=== PATIENT | male | born 1955 | race Caucasian/White ===

== ENCOUNTER 2020-09-18 09:46 | Outpatient (CLI) | payer OTHER, SELFPAY ==
[2020-09-18 10:15] VITALS: BMI 22.3
--- NOTE | 2020-09-18 10:16 | ECG_ITS ---
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 Interpretive Statements NAME OF STUDY: EXERCISE SESTAMIBI STRESS TEST INDICATION: Chest pain with abnormal EKG RESULTS TO [facility] PROCEDURE: The baseline electrocardiogram showed normal sinus rhythm with some nonspecific T wave changes.. At the baseline, the patient's blood pressure was 112/75 mm Hg with a heart rate of 76. The patient exercised for 6 minutes on a standard Darrick protocol. Patient attained a maximum heart rate of 135 beats per minute(86% of the maximum predicted heart rate) with a blood pressure at the peak exercise of 139/70 mm Hg. The EKG at the peak exercise revealed no significant changes. Patient did not have any chest pain or any significant arrhythmis with the exercise Sestamibi was injected 1 minute prior to the peak exercise During the recovery phase, there were no new changes. Blood pressure at the end of the recovery phase was 158/74 mm Hg with a heart rate of 96 per minute. CONCLUSION: 1. No significant EKG changes with the treadmill exercise 2. No exercise-induced chest pain or cardiac arrhythmia 3. Good impaired exercise tolerance, attained a maximum of METs 4. Sestamibi/Sestamibi perfusion results pending; see separate report. Electronically Signed On 09-28-2020 11:37:22 SCALE AND SKIP CAR OPERATOR by Julien Sterling M.D. [id number]
--- NOTE | 2020-09-18 10:17 | NMCV_ITS ---
NM lino perf SPECT r/s* [id number] Yoandy Marky Age: 65 Gender: M : 1955 Exam Date: 09/18/2020 11:10 Ordering Phys: Julien Sterling MD ([email or web address]) Technologist: PATRICK Jenkins Exam Location: [facility] Indications: SOB STRESS TEST Please see separate stress test report in Eph[facility]any for full findings IMAGE PROTOCOL Rest/Stress 1 Exercise Day Radiopharmaceutical Dose (mCi) Administration Site Administered by Rest: Tc-99m 10.5 IV PATRICK Jenkins Sestamimarina Stress:Tc-99m 32.4 IV PATRICK Jenkins Sestamimarina Rest: 18-Sep-2020 60 Discovery 630 Stress: 18-Sep-2020 30 Discovery 630 Radiopharmaceutical was injected at 85 % maximum heart rate. Images obtained in supine and prone position. SPECT RESULTS Technical Quality: Good Raw Data Analysis: Normal Image Corrections: No attenuation or motion correction applied Summed Stress Score: 3 Summed Rest Score: 8 Summed Difference Score: 0 PERFUSION FINDINGS Small to moderate area of severely decreases uptake in the basal mid and apical inferior, basal and mid inferoseptal, apical inferior and apical septal regions. No significant reversibility was noted in these regions. FUNCTIONAL RESULTS (calculated via Gated SPECT) Stress Image LV EF (%): 68 Stress EDV (mL):85 TID: 0.91 Stress ESV (mL):27 FUNCTIONAL FINDINGS: Segmental wall motion analysis revealed no gross wall motion normalities. IMPRESSIONS 1. Myocardial perfusion imaging revealing small to moderate area of persistent decreased tracer uptake in the inferior, inferoseptal and apical regions, suggestive of myocardial scarring versus attenuation artifacts 2. Normal LV ejection fraction of 68%. 3. LV wall motion analysis revealing no gross wall motion abnormalities. 4. Normal LV volume. No significant coronary ischemia, based on the above findings Dr Julien Sterling MD FACC (Electronically Signed) Final Date: 18 September 2020 17:48 S
--- NOTE | 2020-09-18 11:45 | SUR.PREOP ---
Patient reports no pain or discomfort prior to the start of the procedure.
[2020-09-18 12:04] VITALS: BP 158/64; PULSE 83
--- NOTE | 2020-09-18 13:30 | USCV_ITS ---
Marky Pitt Age: 65 Gender: M : 1955 Exam Date: 09/18/2020 10:32 Ordering Phys: Julien Sterling MD ([email or web address]) Technologist: Marcus Rico Exam Location: [facility] [place] Indication: CHEST PAIN PAIN BP: 143 / 75 HR: 62 Rhythm: Sinus Technical Quality: Good MEASUREMENTS (Male / Female) Normal Values 2D ECHO LV Diastolic Diameter PLAX 3.7 cm 4.2 - 5.9 / 3.9 - 5.3 cm LV Systolic Diameter PLAX 1.9 cm IVS Diastolic Thickness 1.8 cm 0.6 - 1.0 / 0.6 - 0.9 cm IVS Systolic Thickness 2.3 cm LVPW Diastolic Thickness 1.5 cm 0.6 - 1.0 / 0.6 - 0.9 cm LVPW Systolic Thickness 2.0 cm LVOT Diameter 2.0 cm LV Ejection Fraction 2D Teich 81.1 % LV Ejection Fraction MOD 2C 72.1 % LV Ejection Fraction 2C AL 71.5 % LA Diameter 3.2 cm LA Width 3.5 cm LA Height 3.4 cm RA Width 0.0 cm Aorta at Sinotubular Diameter 3.0 cm M-MODE LV Diastolic Diameter MM 2.9 cm 4.2 - 5.9 / 3.9 - 5.3 cm LV Systolic Diameter MM 3.1 cm LV Ejection Fraction MM Teich -12.9 % IVS Diastolic Thickness MM 1.4 cm 0.6 - 1.0 / 0.6 - 0.9 cm IVS Systolic Thickness MM 1.7 cm LVPW Diastolic Thickness MM 1.2 cm 0.6 - 1.0 / 0.6 - 0.9 cm LVPW Systolic Thickness MM 2.0 cm Aortic Annulus Diameter 3.8 cm LA Ao Ratio MM 0.9 MV E Point Septal Separation 0.7 cm DOPPLER AV Peak Velocity 122.0 cm/s LVOT Peak Velocity 116.0 cm/s AV Area Cont Eq vti 2.4 cm squared AV Area Cont Eq pk 3.1 cm squared MV Area PHT 3.1 cm squared Mitral E to A Ratio 1.1 MV E' Velocity 42.6 cm/s Mitral E to MV E' Ratio 8.8 Mitral E to LV E' Lateral Ratio 8.2 Mitral E to LV E' Septal Ratio 9.4 TR Peak Velocity 263.0 cm/s TR Peak Gradient 27.7 mmHg TV Peak E Velocity 64.0 cm/s PV Peak Velocity 64.0 cm/s RV Acceleration Time 0.1 s RV Ejection Time 0.3 s RV AcT/ET 0.5 FINDINGS Left Ventricle Normal left ventricular size and systolic function, EF 73 %. Mild left ventricular hypertrophy. No regional wall motion abnormalities. Right Ventricle The right ventricle is normal in size and function. Right Atrium The right atrium is normal in size. Left Atrium The left atrium is normal in size. Mitral Valve Thickened mitral valve. Echodensity in the anterior mitral leaflet, may suggest calcification.trace mitral valve regurgitation. Aortic Valve Thickened aortic valve. Tricuspid Valve No gross abnormalities noted. Trace tricuspid valve regurgitation. Pulmonic Valve No gross abnormalities noted Pericardium Normal pericardium without effusion. Aorta Normal ascending aorta dimension. CONCLUSIONS Normal left ventricular size and systolic function, EF 73 %. Mild left ventricular hypertrophy. No regional wall motion abnormalities. Thickened mitral valve. Echodensity in the anterior mitral leaflet, may suggest calcification.trace mitral valve regurgitation. Thickened aortic valve. Trace of tricuspid regurgitation There is no pericardial effusion. There are no intracardiac masses. No previous study is available for comparison. Dr Julein Sterling MD FACC (Electronically Signed) Final Date: 18 September 2020 20:51 S
== END 2020-09-18 09:47 | disposition home or self-care (01) ==
LOC: CDL 09:48
PROVIDERS: Visit Provider Internal Medicine Cardiovascular Disease
DX: R06.02 Shortness of breath (principal); R07.89 Other chest pain; I08.3 Combined rheumatic disorders of mitral, aortic and tricuspid valves
CPT/HCPCS: 78452; 93017; 93306; A9500

== ENCOUNTER 2020-12-03 11:59 | Emergency (ER) | payer OTHER, SELFPAY ==
[2020-12-03 12:16] VITALS: BP 150/84; PULSE 68; RESP 15; TEMP 36.3; O2SAT 99; BMI 22.7
--- NOTE | 2020-12-03 12:26 | ED_ITS ---
HPI - General Adult General: Chief complaint: General Medical Stated complaint: KAUFMAN, double vision, dizziness Time Seen by Provider: 12/03/20 12:24 History of Present Illness: HPI narrative: This patient is a 65-year-old male who presents to the emergency department complaint of 1 month worth of intermittent headache and intermittent blurry vision. Patient states that for the past month at times he will get a headache that involves his entire forehead area and it feels like pressure and then he will get blurred vision. When the headache goes away his vision gets better. Patient states happen again early this morning. Patient was sent to the emergency department by an urgent care facility. We will do medical evaluation treat as needed Location: head and eyes Radiation: non-radiation Severity: moderate Pain Consistency: intermittent Associated symptoms: Reports headache(s); Deny chest pain, dyspnea, nausea, rash, palpitations or vomiting Review of Systems General: Reports: 10 or more systems reviewed and unremarkable except in HPI and below Const: Denies: fever(s), chills, body aches or fatigue Eyes: Reports: change in vision; Denies: blurry vision ENMT: Denies: throat pain, hoarseness or mouth pain Card: Denies: chest pain, palpitations, irregular heart rhythm, edema, swelling of feet/ankles or lightheadedness Resp: Denies: dyspnea, productive cough, non-productive cough, wheezing or pain on inspiration GI: Denies: abdominal pain, nausea or vomiting : Denies: flank pain, dysuria, urinary frequency, urinary urgency or urinary hesitancy Musc: Denies: neck pain, back pain, extremity pain, extremity swelling, joint pain, joint swelling, joint redness, joint warmth or limited range of motion Skin/Breast: Denies: rash, pruritus, erythema or skin tenderness Neuro: Reports: headache(s); Denies: numbness in extremities or weakness in extremities Psych: Denies: anxiety or depression PFSH ED PFSH: Medical History Abnormal EKG Acute coronary syndrome Atypical chest pain Chest pain History of bilateral inguinal hernias History of COPD History of restless legs syndrome Hx of chronic gastritis Hx of hyperlipidemia Near syncope Sciatica Smoking addiction SOB (shortness of breath) Family History Father , [place] Hx of myocardial infarction Cancer leukemia Mother , [place] Hx of myocardial infarction Diabetes Brother CAD (coronary artery disease) AAA (abdominal aortic aneurysm) Diabetes Denies family history of Anesthesia complication Bleeding disorder Social History Smoking and tobacco status: current every day smoker cigarettes Packs smoked per day: 1 Alcohol intake: current Alcohol intake frequency: few times a week Alcohol type: beer Substance/Drug Use: former Date of last use: marijuana Household members: spouse Marital status: Current occupational status: employed History of recent travel: Yes Details: warehouse delivery driver Out of state: Yes Physical Exam Const: COMMON NORMALS: no acute distress, average body habitus, patient oriented x3, no limitations, healthy appearing, alert and well nourished HENMT: COMMON NORMALS: normocephalic, atraumatic, external ears normal, EAC's normal, TM's normal bilaterally, Normal external nose present and Normal nasal mucous membranes and turbinates present HEAD & SCALP: normocephalic and atraumatic NOSE: Normal external nose present and Normal nasal mucous membranes and turbinates present EXTERNAL EAR: Yes external ears normal EXTERNAL AUDITORY CANAL: EAC's normal TYMPANIC MEMBRANE: TM's normal bilaterally Neck/C-Spine: COMMON NORMALS: full ROM, no lymphadenopathy, supple, no meningeal signs, no JVD, Thyroid normal and No carotid bruits THYROID: Thyroid normal Chest: COMMONS NORMALS: normal inspection of the chest, normal palpation of entire chest wall, normal inspection of the breasts and normal palpation of the breasts Breast/axilla inspection: Yes normal inspection of the breasts BREAST/AXILLA PALPATION: Yes normal palpation of the breasts Resp: COMMON NORMALS: normal respiratory effort, No retractions, No use of accessory muscles, clear to auscultation bilaterally and percussion normal AUSCULTATION: clear to auscultation bilaterally PERCUSSION: percussion normal Cardio: COMMON NORMALS: no JVD, regular rate, regular rhythm, S1 normal heart sound present, S2 normal heart sound present, No gallops present (Cardio), No clicks present (Cardio), No murmurs present (Cardio), No rub (Cardio) and Peripheral pulses 2+ throughout RATE: regular rate RHYTHM: regular rhythm HEART SOUNDS: S1 normal heart sound present and S2 normal heart sound present PERIPHERAL PULSES: Peripheral pulses 2+ throughout GI: COMMON NORMALS: Normal to inspection, nondistended, normoactive bowel sounds present, Soft to palpation, non-tender, No hepatosplenomegaly present, no masses and no bruits PALPATION: Yes Soft to palpation and Yes No hepatosplenomegaly present : COMMON NORMALS: Yes no CVA tenderness BLADDER/KIDNEY EXAM: Yes no CVA tenderness Back/Pelvis: COMMON NORMALS: no CVA tenderness, thoracic and lumbar spine normal to inspection, no thoracic nor lumbar tenderness, thoraco-lumbar ROM normal and straight leg raise negative bilaterally Extremity: COMMON NORMALS: normal to inspection, full ROM, capillary refill normal, no joint enlargement, no clubbing, cyanosis or edema, no calf tenderness and no pedal edema Neuro: COMMON NORMALS: patient oriented x3, CN's II-XII intact bilaterally, moves all extremities, no focal motor deficits, no sensory deficits noted, deep tendon reflexes 2+ bilaterally and gait normal SENSORIUM/ORIENTATION: Yes alert MENINGEAL SIGNS: Yes no meningeal signs Course ED course: Patient presented to the emergency department complaint of headache and blurry vision intermittent over 1 month. No symptoms upon arrival. Reevaluation(s): Reevaluation #1: I did discuss at length with patient about CT findings. Patient continues to be negative for headache or blurry vision at this time. We did discuss options about migraine headaches. Patient be given a prescription for diclofenac as needed for headaches patient should follow-up primary care physician and may need referral over to neurology if symptoms continue to occur. 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 He cannot take any medications that can make patient sleepy. Time: 13:10 Vital Signs: Vital signs: Vital Signs Temperature 97.3 F L 12/03/20 12:16 Pulse Rate 68 12/03/20 12:16 Respiratory Rate 15 12/03/20 12:16 Blood Pressure 150/84 12/03/20 12:16 Pulse Oximetry 99 12/03/20 12:16 MDM - General Adult Differential Diagnosis: Differential Diagnosis: Migraine, tumor, Imaging Data^: CT Head: Attestation: I personally reviewed and interpreted this imaging study as follows: Radiologist's impression: IMPRESSION: 1. No acute intracranial hemorrhage or edema. 2. Mild atrophy and mild chronic microvascular ischemic disease. Discharge Plan Discharge Patient Disposition: Home Clinical Impression: Migraine, Blurred vision Condition: Stable Prescriptions: New diclofenac sodium 75 mg tablet,delayed release (DR/EC) 75 mg PO BID PRN (Reason: pain) Qty: 20 RF: 0 No Action Proair Digihaler 90 mcg/actuation aero powdr breath act w/sensor 1 inh inhalation Q4H RF: 0 budesonide-formoterol 160-4.5 mcg/actuation HFA aerosol inhaler 2 puff inhalation BID RF: 0 cholecalciferol (vitamin D3) 25 mcg (1,000 unit) capsule 25 mcg PO DAILY RF: 0 pramipexole 0.25 mg tablet 0.25 mg PO DAILY RF: 0 Excedrin Migraine 250-250-65 mg tablet 1 tab PO Q6H PRNRF: 0 nitroglycerin 0.4 mg tablet, sublingual 0.4 mg sublingual Q5M PRN (Reason: chest pain) 30 Days Qty: 30 RF: 3 Discharge Orders: Discharge ED (Routine); Ordered 12/03/20 Ordered By: Avinash Jeter Discharge Diet: Advance as tolerated Discharge Activity: Resume usual activity Patient Instructions: Opioid Safety Activity Restrictions/Additional Instructions: Encourage p.o. fluids. Take medications as prescribed for headache. Get plenty of rest. Follow-up with ophthalmology to have your eyes examined. Follow-up with primary care physician. May need referral to neurology due to recurrent headaches. See your primary care physician to discuss further. Coding Level of Care Code ED Client Support Manager for Palomo Fwalthea Exam Comprehensive
--- NOTE | 2020-12-03 12:26 | CT_ITS ---
WS: [id number] CT HEAD NONCONTRAST HISTORY: CVA TECHNIQUE: Contiguous axial imaging performed through the brain in 2.5 mm imaging. Bone and soft tiss ue windows. Sagittal and coronal reformats reviewed. All CT scans at [facility] use at ast one of these dose optimization techniques: automated exposure control; mA and/or kV adjustment pe r patient size (includes targeted exams where dose is matched to clinical indication); or iterative r econstruction. DLP: 858.18 mGy.cm COMPARISON: None available. No acute intracranial hemorrhage, midline shift or mass effect. Mild atrophy and mild chronic microvascular ischemic disease. No prior infarcts. Ventricles: Normal size with no hydrocephalus. Moderate atherosclerosis of the intracranial carotid arteries. Paranasal sinuses: Mild mucoperiosteal thickening in the ethmoid air cells bilaterally. Mastoid air cells: Well pneumatized. Calvarium and scalp: Skull is intact with no soft tissue edema or swelling. CT/CT head wo con* [id number] IMPRESSION: 1. No acute intracranial hemorrhage or edema. 2. Mild atrophy and mild chronic microvascular ischemic disease.
[2020-12-03 13:47] VITALS: BP 123/84; PULSE 62; RESP 20; O2SAT 97
== END 2020-12-03 13:49 | disposition home or self-care (01) ==
PROVIDERS: Emergency Provider Emergency Medicine
DX: G43.909 Migraine, unspecified, not intractable, without status migrainosus (principal); J44.9 Chronic obstructive pulmonary disease, unspecified; E78.5 Hyperlipidemia, unspecified; F17.210 Nicotine dependence, cigarettes, uncomplicated
CPT/HCPCS: 70450; 99282

== ENCOUNTER 2025-02-24 13:03 | Outpatient (CLI) | payer OTHER, SELFPAY ==
--- NOTE | 2025-02-24 13:27 | USR_ITS ---
PROCEDURE INFORMATION: Exam: US Duplex Bilateral Lower Extremity Arteries Exam date and time: 02/24/2025 1:43 PM Age: 69 years old Clinical indication: Pain; Leg, lower; Bilateral; Additional info: Claudication TECHNIQUE: Imaging protocol: Real-time ultrasound scan of the arteries of the bilateral lower extremities with 2-D cornell scale, color Doppler flow and spectral waveform analysis. Images documented and saved. COMPARISON: CT abdomen pelvis wo con [id number] 06/16/2019 10:28 AM FINDINGS: Right common femoral artery: No occlusion or significant stenosis. Normal waveform. Right superficial femoral artery: No occlusion or significant stenosis. Normal waveform. Elevated peak systolic velocity in the mid superficial femoral artery, with significant drop off in the distal superficial femoral. Right popliteal artery: No occlusion or significant stenosis. Normal waveform. Right calf/foot arteries: No occlusion or significant stenosis in the visualized arteries. Monophasic waveform in the posterior tibial artery. Dorsalis pedis artery is patent. Right JOSUÉ 0.95 Left common femoral artery: No occlusion or significant stenosis. Normal waveform. Left superficial femoral artery: No occlusion or significant stenosis. Normal waveform. Left popliteal artery: No occlusion or significant stenosis. Monophasic waveform. Left calf/foot arteries: No occlusion or significant stenosis in the visualized arteries. Monophasic waveforms. Dorsalis pedis artery is patent. Left JOSUÉ 0.77 US/CV arterial duplex [facility] [id number] IMPRESSION: 1. Possible flow-limiting stenosis in the right superficial femoral artery with significant drop off in flow as described. 2. Monophasic waveform in the left popliteal artery and more distally. Flow-limiting stenosis in the left superficial artery is not excluded.
== END 2025-02-24 13:04 | disposition home or self-care (01) ==
LOC: RAD 13:07
PROVIDERS: PCP Family Medicine; Visit Provider Family Medicine
DX: I70.202 Unspecified atherosclerosis of native arteries of extremities, left leg (principal); I77.89 Other specified disorders of arteries and arterioles
CPT/HCPCS: 93925